=== PATIENT | male | born 1985 | race Caucasian/White ===

== ENCOUNTER 2016-05-23 09:01 | Emergency (ER) | payer OTHER ==
[2016-05-23 09:07] VITALS: BP 139/87; PULSE 73; RESP 16; TEMP 97.9; O2SAT 93
--- NOTE | 2016-05-23 09:35 | DX ---
Right Foot - 3 views Indication: Trauma. Pain. Technique: AP, oblique, and lateral views. Comparison: None Findings: An oblique fracture traverses the mid shaft of the proximal phalanx great toe. Distally the fracture plane may extend through the medial margin of the articular surface. No articular step-off, displacement or angulation of the distal fracture fragment. Acute fractures course through the second, third, fourth, and fifth metatarsal heads. The third and f ourth metatarsal fractures have minimal apex medial angulation. Impression: 1. Acute nondisplaced fracture proximal phalanx great toe. 2. Acute 2nd through 5th metatarsal head fractures.
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
[2016-05-23] MEDS ORDERED: OXYCODONE/APAP 5/325MG PREPACK#4 BTL TAKEHOME ONE ×2 (10:43)
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
== END 2016-05-23 10:59 | disposition home or self-care (01) ==
DX: S92.411A Displaced fracture of proximal phalanx of right great toe, initial encounter for closed fracture (principal); S92.321A Displaced fracture of second metatarsal bone, right foot, initial encounter for closed fracture; S92.331A Displaced fracture of third metatarsal bone, right foot, initial encounter for closed fracture; S92.341A Displaced fracture of fourth metatarsal bone, right foot, initial encounter for closed fracture; S92.351A Displaced fracture of fifth metatarsal bone, right foot, initial encounter for closed fracture; V28.4XXA Motorcycle driver injured in noncollision transport accident in traffic accident, initial encounter; Y92.410 Unspecified street and highway as the place of occurrence of the external cause; Y93.89 Activity, other specified
CPT/HCPCS: L4386